=== PATIENT | male | born 1985 | race African-American/Black ===

== ENCOUNTER 2018-01-12 20:04 | Emergency (ER) | payer SELFPAY ==
[~2018-01-12] VITALS: Ht 170.2 cm; Wt 77.3 kg
[2018-01-12 21:04] LABS: APPEARANCE,URINE CLEAR (CLEAR); BILIRUBIN,URINE NEGATIVE (NEGATIVE); GLUCOSE, URINE (UA) NEGATIVE (NEGATIVE); KETONES,URINE NEGATIVE (NEGATIVE); LEUKOCYTE ESTERASE ,URINE NEGATIVE (NEGATIVE); NITRATE,URINE NEGATIVE (NEGATIVE); OCCULT BLOOD,URINE NEGATIVE (NEGATIVE); PH,URINE 6.5 (5.0-8.0); PROTEIN,URINE NEGATIVE (NEGATIVE)
[2018-01-12 21:08] LABS: BARBITURATE SCREEN, URINE NEGATIVE (NEGATIVE); METHADONE SCREEN, URINE NEGATIVE (NEGATIVE)
[2018-01-12 21:24] LABS: BASOPHILS % (AUTO) 0.5 % (0.0-2.0); HEMATOCRIT 41.4 % (41-53); LYMPHOCYTES # (AUTO) 2.4 K/uL (1.0-4.8); LYMPHOCYTES % (AUTO) 42.7 % (22.0-44.0); MEAN CORPUSCULAR HEMOGLOBIN 31.2 pg (26.0-34.0); MEAN CORPUSCULAR HGB CONC 33.7 G/dL (31.0-37.0); MEAN CORPUSCULAR VOLUME 93 fL (80-100); MONOCYTES # (AUTO) 0.7 K/uL (0.1-1.0); MONOCYTES % (AUTO) 11.4 % (2.0-9.0); NEUTROPHILS # (AUTO) 2.5 K/uL (1.8-7.7); NEUTROPHILS % (AUTO) 43.4 % (40.0-70.0); PLATELET COUNT (AUTO) 211 K/uL (150-450); RED BLOOD CELL COUNT(AUTO) 4.47 MIL/uL (4.50-5.90); RED CELL DISTRIBUTION WIDTH 14.5 % (11.5-14.5)
[2018-01-12 21:26] LABS: AMPHET/METH SCREEN,URINE NEGATIVE (NEGATIVE); BENZODIAZEPINES SCREEN,URINE NEGATIVE (NEGATIVE); CANNABINOID SCREEN,URINE POSITIVE (NEGATIVE); COCAINE SCREEN,URINE NEGATIVE (NEGATIVE); OPIATE SCREEN,URINE NEGATIVE (NEGATIVE)
[2018-01-12 21:28] LABS: PHENCYCLIDINE SCREEN,URINE NEGATIVE (NEGATIVE)
[2018-01-12 21:53] LABS: ANION GAP 10 mmol/L (8-16); CALCIUM, TOTAL 8.8 mg/dL (8.8-10.5); CARBON DIOXIDE 27 mmol/L (22-29); CHLORIDE 103 mmol/L (98-107); CREATININE 1.48 mg/dL (0.60-1.30); GLOMERULAR FILTR. RATE CALC > 60 mL/min (>60); GLUCOSE,RANDOM 79 mg/dL (70-110); POTASSIUM 4.1 mmol/L (3.5-5.1); SODIUM SERUM 140 mmol/L (136-145); UREA NITROGEN, BLOOD 15 mg/dL (7-18)
[2018-01-12 22:00] LABS: ALANINE AMINOTRANSFERASE 24 U/L (12-78); ALBUMIN 3.6 g/dL (3.4-5.0); ALKALINE PHOSPHATASE 65 U/L (46-116); ASPARTATE AMINOTRANSFERASE 23 U/L (15-37); BILIRUBIN,TOTAL 0.2 mg/dL (0.1-1.0); LIPASE 126 U/L (73-393); TOTAL PROTEIN, SERUM 6.8 g/dL (6.4-8.2)
[2018-01-12 22:30] VITALS: BP 132/84
== END 2018-01-12 22:37 | disposition home or self-care (01) ==
LOC: EDBD 20:05 → EMS 20:05
DX: R10.30 Lower abdominal pain, unspecified (principal); R10.2 Pelvic and perineal pain; F17.210 Nicotine dependence, cigarettes, uncomplicated
CPT/HCPCS: 99284

== ENCOUNTER 2022-04-19 22:44 | Emergency (ER) | payer SELFPAY ==
[~2022-04-19] VITALS: Ht 175.3 cm; Wt 77.3 kg
[2022-04-19 22:45] VITALS: BP 131/77
[2022-04-20] MEDS ORDERED: METH-659 PO (14:53)
[2022-04-20] MEDS ORDERED: NAPR-1025 PO (14:53)
== END 2022-04-20 00:39 | disposition left against medical advice (07) ==
LOC: EMS 22:48
DX: M54.50 Low back pain, unspecified (principal); Z53.21 Procedure and treatment not carried out due to patient leaving prior to being seen by health care provider

== ENCOUNTER 2022-04-20 11:22 | Emergency (ER) | payer OTHER ==
[~2022-04-20] VITALS: Ht 175.3 cm; Wt 100.0 kg
[2022-04-20 11:52] VITALS: BP 138/77
[2022-04-20] MEDS ORDERED: METHOCARBAMOL 500 MG TABLET PO ONE (14:45)
[2022-04-20] MEDS ORDERED: KETOROLAC TROMETHAMINE 10 MG TABLET PO ONE (14:45)
[2022-04-20] MEDS ORDERED: METH-659 PO (14:53)
[2022-04-20] MEDS ORDERED: NAPR-1025 PO (14:53)
== END 2022-04-20 15:18 | disposition home or self-care (01) ==
LOC: EMS 11:22
DX: M54.50 Low back pain, unspecified (principal); J34.89 Other specified disorders of nose and nasal sinuses
CPT/HCPCS: 99283